=== PATIENT | female | born 1975 | race Caucasian/White ===

== ENCOUNTER 2021-04-19 12:42 | Inpatient (IN) | payer OTHER ==
[~2021-04-19] VITALS: Ht 172.7 cm; Wt 117.9 kg
[2021-04-19] MEDS ORDERED: CETI10TA16 PO (13:12)
[2021-04-19] MEDS ORDERED: MONT10TA49 PO (13:12)
[2021-04-19] MEDS ORDERED: ATEN50TA PO (13:12)
[2021-04-19] MEDS ORDERED: GLUC-11 PO (13:12)
[2021-04-19] MEDS ORDERED: FLUT9.9S NS (13:12)
[2021-04-19] MEDS ORDERED: METF10007 PO (13:12)
[2021-04-19] MEDS ORDERED: CHOL500021 PO (13:12)
[2021-04-19] MEDS ORDERED: MAGN500C10 PO (13:12)
[2021-04-19] MEDS ORDERED: INDO25CA21 PO (13:12)
[2021-04-19] MEDS ORDERED: POTA10TA12 PO (13:12)
[2021-04-19] MEDS: fentaNYL PF VIAL 100 MCG/2 ML VIAL IVP PRN ×2 (13:55→20:50)
[2021-04-19] MEDS: IV NORMAL SALINE 1000ML BAG 1,000 ML IV SCH ×2 (13:57→23:40)
[2021-04-19 14:06] LABS: BASO % 0 % (0-3); EOS % 0 % (0-3); HEMATOCRIT 43.4 % (36.0-47.0); HEMOGLOBIN 14.2 g/dL (12.0-15.5); LYMPH # 0.2 x10^3/uL (1.0-4.8); LYMPH % 4 % (24-48); MEAN CORPUSCULAR HEMOGLOBIN 29 pg (25-35); MEAN CORPUSCULAR HGB CONC 33 g/dL (31-37); MEAN CORPUSCULAR VOLUME 89 fL (79-100); MONO # 0.4 x10^3/uL (0.0-1.1); MONO % 7 % (0-9); NEUT # 6.1 x10^3/uL (1.8-7.7); NEUT % 89 % (31-73); PLATELET COUNT 186 x10^3/uL (140-400); RED BLOOD COUNT 4.91 x10^6/uL (3.50-5.40); RED CELL DISTRIBUTION WIDTH 14.5 % (11.5-14.5); WHITE BLOOD COUNT 6.8 x10^3/uL (4.0-11.0)
[2021-04-19 14:18] LABS: ALBUMIN 3.3 g/dL (3.4-5.0); ALBUMIN/GLOBULIN RATIO 1.2 (1.0-1.7); CALCIUM 8.1 mg/dL (8.5-10.1); CREATININE 0.7 mg/dL (0.6-1.0); GFR 90.9; POTASSIUM 4.5 mmol/L (3.5-5.1); TOTAL BILIRUBIN 0.7 mg/dL (0.2-1.0); TOTAL PROTEIN 6.1 g/dL (6.4-8.2)
[2021-04-19 14:48] LABS: % BANDS 19 % (0-9); % LYMPHS 5 % (24-48); % METAS 1 % (0-0); % MONOS 6 % (0-10); % MYELOS 1 % (0-0); % SEGS 68 % (35-66); PLT ESTIMATE ADEQUATE (ADEQUATE)
[2021-04-19 15:00] VITALS: BP 93/46
[2021-04-19 19:00] VITALS: BP 94/51
--- NOTE | 2021-04-19 19:24 | PDOC2 ---
CONSULT Date of Consult Date of Consult DATE: 04/19/21 TIME: 19:21 Reason for Consult Reason for Consult: ileus Referring Physician Referring Physician: Dr. Cline Identification/Chief Complaint Chief Complaint N/V Source Source: Chart review, Patient History of Present Illness Reason for Visit: 45 yo F with c/o N/V and abd pain. Does feels somewhat better since admission. She does have chronic pain. Past Medical History Endocrine: Diabetes Past Surgical History Past Surgical History: Other (nephrectomy) Family History Family History: No Significant Social History No Current Medications Current Medications Current Medications Sodium Chloride 1,000 ml @ 100 mls/hr Q10H IV Last administered on 04/19/21at 13:57; Start 04/19/21 at 13:00 Fentanyl Citrate (Fentanyl 2ml Vial) 50 mcg PRN Q3HRS PRN IVP PAIN Last administered on 04/19/21at 13:55; Start 04/19/21 at 13:00 Ondansetron HCl (Zofran) 4 mg PRN Q4HRS PRN IVP NAUSEA/VOMITING; Start 04/19/21 at 13:00 Active Scripts Active Reported Cidaflex Tablet (Glucosamine Hcl/Chondr Eller A Na) 1 Each Tablet 1 Tab PO DAILY 30 Days Flonase Allergy Relief (Fluticasone Propionate) 9.9 Ml [place].susp 2 Sprays NS PRN DAILY PRN Potassium Chloride (Potassium Chloride) 10 Meq Tab.sr.24h 10 Meq PO DAILY D3-50 (Cholecalciferol (Vitamin D3)) 50,000 Unit Capsule 2,000 Unit PO QMWF Magnesium (Magnesium Oxide) 500 Mg Capsule 500 Mg PO DAILY Cetirizine Hcl 10 Mg Tablet 1 Tab PO DAILY Indomethacin 25 Mg Capsule 25 Mg PO TID Singulair Tablet (Montelukast Sodium) 10 Mg Tablet 10 Mg PO DAILY Atenolol 50 Mg Tablet 1 Tab PO DAILY Metformin Hcl 1,000 Mg Tablet 1,000 Mg PO BIDWMEALS Allergies Allergies: Coded Allergies: Penicillins (Verified Allergy, Unknown, 04/19/21) ROS Gastrointestinal: Yes Nausea, Yes Vomiting, Yes Abdominal Pain Physical Exam General: Alert, Oriented X3, Cooperative, mild distress HEENT: Atraumatic Lungs: Normal air movement Abdomen: Soft, Other (obese, mild TTP epigastric) Extremities: No clubbing, No cyanosis Skin: No rashes, No breakdown Neuro: Normal speech, Sensation intact Psych/Mental Status: Mental status NL, Mood NL Vitals VITALS Vital Signs Date Time Temp Pulse Resp B/P (MAP) Pulse Ox O2 Delivery O2 Flow Rate FiO2 04/19/21 15:00 98.0 74 18 93/46 (62) 96 Room Air 98.0 Labs Labs Laboratory Tests Test 04/19/21 13:55 White Blood Count 6.8 x10^3/uL (4.0-11.0) Red Blood Count 4.91 x10^6/uL (3.50-5.40) Hemoglobin 14.2 g/dL (12.0-15.5) Hematocrit 43.4 % (36.0-47.0) Mean Corpuscular Volume 89 fL (79-100) Mean Corpuscular Hemoglobin 29 pg (25-35) Mean Corpuscular Hemoglobin Concent 33 g/dL (31-37) Red Cell Distribution Width 14.5 % (11.5-14.5) Platelet Count 186 x10^3/uL (140-400) Neutrophils (%) (Auto) 89 % (31-73) Lymphocytes (%) (Auto) 4 % (24-48) Monocytes (%) (Auto) 7 % (0-9) Eosinophils (%) (Auto) 0 % (0-3) Basophils (%) (Auto) 0 % (0-3) Neutrophils # (Auto) 6.1 x10^3/uL (1.8-7.7) Lymphocytes # (Auto) 0.2 x10^3/uL (1.0-4.8) Monocytes # (Auto) 0.4 x10^3/uL (0.0-1.1) Eosinophils # (Auto) 0.0 x10^3/uL (0.0-0.7) Basophils # (Auto) 0.0 x10^3/uL (0.0-0.2) Segmented Neutrophils % 68 % (35-66) Band Neutrophils % 19 % (0-9) Lymphocytes % 5 % (24-48) Monocytes % 6 % (0-10) Metamyelocytes % 1 % (0-0) Myelocytes % 1 % (0-0) Platelet Estimate Adequate (ADEQUATE) Sodium Level 141 mmol/L (136-145) Potassium Level 4.5 mmol/L (3.5-5.1) Chloride Level 105 mmol/L (98-107) Carbon Dioxide Level 26 mmol/L (21-32) Anion Gap 10 (6-14) Blood Urea Nitrogen 19 mg/dL (7-20) Creatinine 0.7 mg/dL (0.6-1.0) Estimated GFR (Cockcroft-Gault) 90.9 BUN/Creatinine Ratio 27 (6-20) Glucose Level 298 mg/dL (70-99) Calcium Level 8.1 mg/dL (8.5-10.1) Total Bilirubin 0.7 mg/dL (0.2-1.0) Aspartate Amino Transf (AST/SGOT) 15 U/L (15-37) Alanine Aminotransferase (ALT/SGPT) 34 U/L (14-59) Alkaline Phosphatase 48 U/L (46-116) Total Protein 6.1 g/dL (6.4-8.2) Albumin 3.3 g/dL (3.4-5.0) Albumin/Globulin Ratio 1.2 (1.0-1.7) Laboratory Tests Test 04/19/21 13:55 White Blood Count 6.8 x10^3/uL (4.0-11.0) Red Blood Count 4.91 x10^6/uL (3.50-5.40) Hemoglobin 14.2 g/dL (12.0-15.5) Hematocrit 43.4 % (36.0-47.0) Mean Corpuscular Volume 89 fL (79-100) Mean Corpuscular Hemoglobin 29 pg (25-35) Mean Corpuscular Hemoglobin Concent 33 g/dL (31-37) Red Cell Distribution Width 14.5 % (11.5-14.5) Platelet Count 186 x10^3/uL (140-400) Neutrophils (%) (Auto) 89 % (31-73) Lymphocytes (%) (Auto) 4 % (24-48) Monocytes (%) (Auto) 7 % (0-9) Eosinophils (%) (Auto) 0 % (0-3) Basophils (%) (Auto) 0 % (0-3) Neutrophils # (Auto) 6.1 x10^3/uL (1.8-7.7) Lymphocytes # (Auto) 0.2 x10^3/uL (1.0-4.8) Monocytes # (Auto) 0.4 x10^3/uL (0.0-1.1) Eosinophils # (Auto) 0.0 x10^3/uL (0.0-0.7) Basophils # (Auto) 0.0 x10^3/uL (0.0-0.2) Segmented Neutrophils % 68 % (35-66) Band Neutrophils % 19 % (0-9) Lymphocytes % 5 % (24-48) Monocytes % 6 % (0-10) Metamyelocytes % 1 % (0-0) Myelocytes % 1 % (0-0) Platelet Estimate Adequate (ADEQUATE) Sodium Level 141 mmol/L (136-145) Potassium Level 4.5 mmol/L (3.5-5.1) Chloride Level 105 mmol/L (98-107) Carbon Dioxide Level 26 mmol/L (21-32) Anion Gap 10 (6-14) Blood Urea Nitrogen 19 mg/dL (7-20) Creatinine 0.7 mg/dL (0.6-1.0) Estimated GFR (Cockcroft-Gault) 90.9 BUN/Creatinine Ratio 27 (6-20) Glucose Level 298 mg/dL (70-99) Calcium Level 8.1 mg/dL (8.5-10.1) Total Bilirubin 0.7 mg/dL (0.2-1.0) Aspartate Amino Transf (AST/SGOT) 15 U/L (15-37) Alanine Aminotransferase (ALT/SGPT) 34 U/L (14-59) Alkaline Phosphatase 48 U/L (46-116) Total Protein 6.1 g/dL (6.4-8.2) Albumin 3.3 g/dL (3.4-5.0) Albumin/Globulin Ratio 1.2 (1.0-1.7) Images Images CT at [facility] demonstrates dilated SB loops Assessment/Plan Assessment/Plan ileus agree with supportive care, favor gastroenteritis, which should resolved with conservative measurements. Thanks for consult! RAYMUNDO MILLER MD Apr 19, 2021 19:24
[2021-04-19 23:00] VITALS: BP 103/55
[2021-04-20 03:00] VITALS: BP 105/67
[2021-04-20] MEDS: fentaNYL PF VIAL 100 MCG/2 ML VIAL IVP PRN ×5 (04:42→20:46)
[2021-04-20 07:08] VITALS: BP 124/76
--- NOTE | 2021-04-20 08:00 | RAD ---
INDICATION: Reason: ileus / Spl. Instructions: / History: COMPARISON: One day prior IMPRESSION: Abdomen: 3 views obtained. Degenerative changes the spine and hips. The majority of the bowel loops a re not opacified with the gas therefore not well evaluated on plain film. There is scattered nonspeci fic air in the bowel loops. Electronically signed by: Len Matos MD (04/20/2021 7:57 AM) [id number]
--- NOTE | 2021-04-20 08:39 | HP ---
ADMIT DATE: 04/20/2021 HISTORY OF PRESENT ILLNESS: The patient is a 45-year-old female patient who presented to the Emergency Room with nausea, vomiting and abdominal pain. She apparently woke up at around 3:00 a.m., feeling nauseated. She has had several episodes of vomiting. She has diffuse abdominal pain and low back pain that she describes as stabbing. She apparently has chronic low back pain at baseline. The patient mentioned that she had also mild discomfort, but thinks that this is because of her dry heaving. No history of cardiac or lung problems. Denied any chills, rigors or fever. She was extensively investigated in the Emergency Room and has had lab work. Her white cell count was normal and her chemistry was mostly unremarkable. Urinalysis was also unremarkable and toxic screen was essentially negative. She has had imaging studies including a chest x-ray which showed no acute osseous abnormality and a CT scan of the abdomen and pelvis which basically showed mildly dilated air and fluid-filled jejunal loops are seen within the left abdomen, which could represent an ileus versus mild partial small-bowel obstruction, probable cysts are seen involving the right ovary, these measures 2 and 3.8 cm in size and therefore, the patient was transferred to [facility], was kept n.p.o., started on IV fluid, IV pain medication and antiemetic and consulted the surgical team. PAST MEDICAL HISTORY: Significant for type 2 diabetes mellitus, hypertension, hyperlipidemia. PAST SURGICAL HISTORY: Significant for a left oophorectomy. ALLERGIES: She has according to her, no known drug allergies. MEDICATIONS: She is currently on the following medications: She is on clonidine 0.1 mg twice a day, atenolol 25 mg twice a day, ibuprofen 800 mg every 8 hours, naproxen 220 mg every 8 hours, potassium chloride 10 mEq once a day, metformin 500 mg p.o. twice a day. FAMILY HISTORY: She has two sisters and one brother, older. Her older sister has scleroderma. Her biological father is and she does not know him very well. Her mother is still alive, 74 years old and she has diabetes mellitus. SOCIAL HISTORY: She is , has 1 son. Quit smoking about 10 years ago. Drinks alcohol occasionally. She does not use any drugs. She works as an predatory animal exterminator. REVIEW OF SYSTEMS: As per history of present illness. PHYSICAL EXAMINATION: GENERAL: On arrival to the Emergency Room, she looked well and was clearly in no apparent respiratory distress. No pallor, jaundice, cyanosis, or thyromegaly. No jugular venous distention. No limb edema. VITAL SIGNS: Heart rate was 102, blood pressure is 134/81, temperature was 98.7, respiratory rate was 16 and oxygen saturation was 97% on room air. HEAD, EYES, EARS, NOSE AND THROAT: She is normocephalic, atraumatic. NECK: Supple. HEART: Normal first and second heart sounds, no gallop, murmur. CHEST: Clear to auscultation without crepitation or rhonchi. ABDOMEN: Distended, mild tenderness, mostly in the right upper quadrant. There is no guarding or rigidity. No organomegaly. All hernial orifice intact. Bowel sounds sluggish. NEUROLOGIC: She was grossly intact. LABORATORY DATA: While in the Emergency Room, she has had lab work, which basically showed a white cell count of 8400, hemoglobin 15, hematocrit 47, MCV 89 and platelet count 212,000 with normal manual differential. Her chemistry showed a serum sodium 139, potassium 3.8, chloride 103, bicarbonate 22, anion gap of 14, BUN 18, creatinine 0.7. Estimated GFR was 91 mL per minute. His glucose was 196, calcium was 8.3. Her bilirubin, AST, ALT, alkaline phosphatase were normal. Her total protein is 6.9, albumin 3.5. Urinalysis showed the urine was yellow, cloudy with a pH of 5, specific gravity 1.025. The urine was negative for protein. There was large amount of glucose, trace of ketones and trace of blood, negative for nitrite and bilirubin as well as urobilinogen dipstick, it was negative for leukocyte esterase, rare RBCs, 1-4 WBCs and no bacteria. Her urine toxic screen was essentially negative. ASSESSMENT AND PLAN: Because of the finding on the CT scan of the abdomen, dilated fluid filled jejunal loops are seen within the left abdomen obese, these finding could reflect an ileus versus mild partial bowel obstruction, the patient was kept n.p.o., started on IV fluid and was transferred to [facility]. We will continue with IV fentanyl and antiemetic. We did consult the surgical team for further evaluation and treatment. MORIS/ALFONZO DR: Devon TID: [id number]
[2021-04-20] MEDS: IV NORMAL SALINE 1000ML BAG 1,000 ML IV SCH ×2 (09:29→20:42)
[2021-04-20 11:11] VITALS: BP 124/89
--- NOTE | 2021-04-20 12:08 | PDOC ---
SURGICAL PROGRESS NOTE DATE: 04/20/21 TIME: 12:07 Subjective Pt reports feeling a little better, no N/V, no flatus, c/o stabbing LLQ and LUQ pain Vital Signs Vital Signs Date Time Temp Pulse Resp B/P (MAP) Pulse Ox O2 Delivery O2 Flow Rate FiO2 04/20/21 11:53 Room Air 04/20/21 11:11 98.5 85 18 124/89 (101) 96 98.5 General: Alert, Oriented X3, Cooperative, No acute distress Abdomen: Soft, No tenderness, Other (obese) Labs Laboratory Tests Test 04/19/21 13:55 04/19/21 20:36 04/20/21 06:59 04/20/21 11:19 White Blood Count 6.8 x10^3/uL (4.0-11.0) Red Blood Count 4.91 x10^6/uL (3.50-5.40) Hemoglobin 14.2 g/dL (12.0-15.5) Hematocrit 43.4 % (36.0-47.0) Mean Corpuscular Volume 89 fL (79-100) Mean Corpuscular Hemoglobin 29 pg (25-35) Mean Corpuscular Hemoglobin Concent 33 g/dL (31-37) Red Cell Distribution Width 14.5 % (11.5-14.5) Platelet Count 186 x10^3/uL (140-400) Neutrophils (%) (Auto) 89 % (31-73) Lymphocytes (%) (Auto) 4 % (24-48) Monocytes (%) (Auto) 7 % (0-9) Eosinophils (%) (Auto) 0 % (0-3) Basophils (%) (Auto) 0 % (0-3) Neutrophils # (Auto) 6.1 x10^3/uL (1.8-7.7) Lymphocytes # (Auto) 0.2 x10^3/uL (1.0-4.8) Monocytes # (Auto) 0.4 x10^3/uL (0.0-1.1) Eosinophils # (Auto) 0.0 x10^3/uL (0.0-0.7) Basophils # (Auto) 0.0 x10^3/uL (0.0-0.2) Segmented Neutrophils % 68 % (35-66) Band Neutrophils % 19 % (0-9) Lymphocytes % 5 % (24-48) Monocytes % 6 % (0-10) Metamyelocytes % 1 % (0-0) Myelocytes % 1 % (0-0) Platelet Estimate Adequate (ADEQUATE) Sodium Level 141 mmol/L (136-145) Potassium Level 4.5 mmol/L (3.5-5.1) Chloride Level 105 mmol/L (98-107) Carbon Dioxide Level 26 mmol/L (21-32) Anion Gap 10 (6-14) Blood Urea Nitrogen 19 mg/dL (7-20) Creatinine 0.7 mg/dL (0.6-1.0) Estimated GFR (Cockcroft-Gault) 90.9 BUN/Creatinine Ratio 27 (6-20) Glucose Level 298 mg/dL (70-99) Calcium Level 8.1 mg/dL (8.5-10.1) Total Bilirubin 0.7 mg/dL (0.2-1.0) Aspartate Amino Transf (AST/SGOT) 15 U/L (15-37) Alanine Aminotransferase (ALT/SGPT) 34 U/L (14-59) Alkaline Phosphatase 48 U/L (46-116) Total Protein 6.1 g/dL (6.4-8.2) Albumin 3.3 g/dL (3.4-5.0) Albumin/Globulin Ratio 1.2 (1.0-1.7) Glucose (Fingerstick) 194 mg/dL (70-99) 174 mg/dL (70-99) 168 mg/dL (70-99) Laboratory Tests Test 04/19/21 13:55 04/19/21 20:36 04/20/21 06:59 04/20/21 11:19 White Blood Count 6.8 x10^3/uL (4.0-11.0) Red Blood Count 4.91 x10^6/uL (3.50-5.40) Hemoglobin 14.2 g/dL (12.0-15.5) Hematocrit 43.4 % (36.0-47.0) Mean Corpuscular Volume 89 fL (79-100) Mean Corpuscular Hemoglobin 29 pg (25-35) Mean Corpuscular Hemoglobin Concent 33 g/dL (31-37) Red Cell Distribution Width 14.5 % (11.5-14.5) Platelet Count 186 x10^3/uL (140-400) Neutrophils (%) (Auto) 89 % (31-73) Lymphocytes (%) (Auto) 4 % (24-48) Monocytes (%) (Auto) 7 % (0-9) Eosinophils (%) (Auto) 0 % (0-3) Basophils (%) (Auto) 0 % (0-3) Neutrophils # (Auto) 6.1 x10^3/uL (1.8-7.7) Lymphocytes # (Auto) 0.2 x10^3/uL (1.0-4.8) Monocytes # (Auto) 0.4 x10^3/uL (0.0-1.1) Eosinophils # (Auto) 0.0 x10^3/uL (0.0-0.7) Basophils # (Auto) 0.0 x10^3/uL (0.0-0.2) Segmented Neutrophils % 68 % (35-66) Band Neutrophils % 19 % (0-9) Lymphocytes % 5 % (24-48) Monocytes % 6 % (0-10) Metamyelocytes % 1 % (0-0) Myelocytes % 1 % (0-0) Platelet Estimate Adequate (ADEQUATE) Sodium Level 141 mmol/L (136-145) Potassium Level 4.5 mmol/L (3.5-5.1) Chloride Level 105 mmol/L (98-107) Carbon Dioxide Level 26 mmol/L (21-32) Anion Gap 10 (6-14) Blood Urea Nitrogen 19 mg/dL (7-20) Creatinine 0.7 mg/dL (0.6-1.0) Estimated GFR (Cockcroft-Gault) 90.9 BUN/Creatinine Ratio 27 (6-20) Glucose Level 298 mg/dL (70-99) Calcium Level 8.1 mg/dL (8.5-10.1) Total Bilirubin 0.7 mg/dL (0.2-1.0) Aspartate Amino Transf (AST/SGOT) 15 U/L (15-37) Alanine Aminotransferase (ALT/SGPT) 34 U/L (14-59) Alkaline Phosphatase 48 U/L (46-116) Total Protein 6.1 g/dL (6.4-8.2) Albumin 3.3 g/dL (3.4-5.0) Albumin/Globulin Ratio 1.2 (1.0-1.7) Glucose (Fingerstick) 194 mg/dL (70-99) 174 mg/dL (70-99) 168 mg/dL (70-99) I have reviewed the following KUB wnl Problem List abd pain no obvious surgical intervention and favor gastroenteritis will ask GI to comment. Justicifation of Admission Dx: Justifications for Admission: Justification of Admission Dx: N/A RAYMUNDO MILLER MD Apr 20, 2021 12:08
--- NOTE | 2021-04-20 12:25 | NUR ---
Dr. Brewer consult called, Dr. Trujillo assistant store manager operations today.
[2021-04-20 14:09] VITALS: BP 127/78
[2021-04-20 19:15] VITALS: BP 138/63
--- NOTE | 2021-04-20 19:58 | PN ---
DATE: 04/20/2021 SUBJECTIVE: The patient is resting slightly propped up in bed in no apparent distress. Has some discomfort in the right upper quadrant and also pain that she describes as stabbing, goes through and through to the back. Denied any nausea, vomiting. She has not passed any gas and has no bowel movement. PHYSICAL EXAMINATION: GENERAL: When I examined her this morning, she looked well and was clearly in no apparent respiratory distress. No pallor, jaundice, cyanosis, thyromegaly. No jugular venous distention. No lower limb edema. VITAL SIGNS: Heart rate was 90, blood pressure is 124/70, temperature was 99, respiratory rate was 18 and oxygen saturation was 96% on room air. HEAD, EYES, EARS, NOSE AND THROAT: Normocephalic, atraumatic. NECK: Supple. HEART: Showed normal first and second heart sounds, no gallop, or murmur. CHEST: Clear to auscultation, no crepitation or rhonchi. ABDOMEN: Distended, mostly soft. Tenderness mostly in the right upper quadrant. There is no guarding or rigidity. No organomegaly. All hernial orifice intact. Bowel sounds are inaudible. NEUROLOGIC: She seems to be all intact. Her intake and output are incompletely recorded. LABORATORY DATA: Her lab work this morning showed a white cell count 6800; hemoglobin 14; hematocrit 44; MCV 89 and platelet count of 186,000. Her serum sodium is 141, potassium 4.5, chloride 105, bicarbonate 26, anion gap of 10, BUN 19, creatinine 0.7. Estimated GFR was 90 mL per minute. Her glucose was 298, calcium was 8.1. Total bilirubin, AST, ALT, alkaline phosphatase were normal. Total protein 6.1, albumin 3.3. ASSESSMENT: Small-bowel obstruction. Her abdomen x-ray showed the majority of the bowel loops that are not opacified. ____. There is scattered foci of air in the bowel loops. PLAN: To keep the patient n.p.o. Continue with IV fluid. Continue pain management, antiemetic. Continue to monitor her blood sugar. MORIS/ALFONZO/SHIRLEY DR: Devon TID: [id number]
--- NOTE | 2021-04-20 20:00 | NUR ---
IV access infiltrated ,patient refused IV access re-started . Addendum: 04/21/21 at 0042 by JIMENEZ NANCE RN correction on above progress note entered by this RN ,wrong patient.
[2021-04-20 23:15] VITALS: BP 125/74
[2021-04-21] MEDS: ONDANSETRON PF 4 MG/2 ML VIAL. IVP PRN ×2 (01:04→22:24)
[2021-04-21] MEDS: fentaNYL PF VIAL 100 MCG/2 ML VIAL IVP PRN ×5 (01:05→22:24)
[2021-04-21 03:16] VITALS: BP 126/78
[2021-04-21] MEDS: IV NORMAL SALINE 1000ML BAG 1,000 ML IV SCH ×3 (06:25→16:38)
[2021-04-21] MEDS: ACETAMINOPHEN 325 MG TABLET. PO PRN ×3 (06:36→20:58)
[2021-04-21 07:12] VITALS: BP 154/84
[2021-04-21 09:25] LABS: BASO % 0 % (0-3); EOS % 0 % (0-3); LYMPH # 0.5 x10^3/uL (1.0-4.8); LYMPH % 10 % (24-48); MEAN CORPUSCULAR HEMOGLOBIN 29 pg (25-35); MEAN CORPUSCULAR HGB CONC 33 g/dL (31-37); MEAN CORPUSCULAR VOLUME 88 fL (79-100); MONO # 0.6 x10^3/uL (0.0-1.1); MONO % 11 % (0-9); NEUT # 4.2 x10^3/uL (1.8-7.7); NEUT % 79 % (31-73); PLATELET COUNT 166 x10^3/uL (140-400); RED BLOOD COUNT 4.44 x10^6/uL (3.50-5.40); RED CELL DISTRIBUTION WIDTH 14.2 % (11.5-14.5); WHITE BLOOD COUNT 5.3 x10^3/uL (4.0-11.0)
[2021-04-21 09:44] LABS: CALCIUM 8.1 mg/dL (8.5-10.1); CREATININE 0.5 mg/dL (0.6-1.0); POTASSIUM 3.3 mmol/L (3.5-5.1); TOTAL BILIRUBIN 0.4 mg/dL (0.2-1.0)
[2021-04-21 10:31] VITALS: BP 147/88
--- NOTE | 2021-04-21 14:05 | PDOC ---
SURGICAL PROGRESS NOTE DATE: 04/21/21 TIME: 14:04 Subjective Pt feels overall improved today. Longstanding back pain. C/o BRYANT. Radha clears, no N/V Vital Signs Vital Signs Date Time Temp Pulse Resp B/P (MAP) Pulse Ox O2 Delivery O2 Flow Rate FiO2 04/21/21 11:46 Room Air 04/21/21 10:31 98.1 77 18 147/88 (107) 97 98.1 I&O Intake and Output 04/21/21 07:00 Intake Total 480 ml Balance 480 ml Intake Oral 480 ml # Voids 2 General: Alert, Oriented X3, Cooperative, No acute distress Abdomen: Soft, No tenderness Labs Laboratory Tests Test 04/19/21 20:36 04/20/21 06:59 04/20/21 11:19 04/20/21 16:06 Glucose (Fingerstick) 194 mg/dL (70-99) 174 mg/dL (70-99) 168 mg/dL (70-99) 225 mg/dL (70-99) Test 04/20/21 20:41 04/21/21 06:51 04/21/21 08:25 04/21/21 11:10 Glucose (Fingerstick) 222 mg/dL (70-99) 184 mg/dL (70-99) 246 mg/dL (70-99) White Blood Count 5.3 x10^3/uL (4.0-11.0) Red Blood Count 4.44 x10^6/uL (3.50-5.40) Hemoglobin 13.0 g/dL (12.0-15.5) Hematocrit 39.0 % (36.0-47.0) Mean Corpuscular Volume 88 fL (79-100) Mean Corpuscular Hemoglobin 29 pg (25-35) Mean Corpuscular Hemoglobin Concent 33 g/dL (31-37) Red Cell Distribution Width 14.2 % (11.5-14.5) Platelet Count 166 x10^3/uL (140-400) Neutrophils (%) (Auto) 79 % (31-73) Lymphocytes (%) (Auto) 10 % (24-48) Monocytes (%) (Auto) 11 % (0-9) Eosinophils (%) (Auto) 0 % (0-3) Basophils (%) (Auto) 0 % (0-3) Neutrophils # (Auto) 4.2 x10^3/uL (1.8-7.7) Lymphocytes # (Auto) 0.5 x10^3/uL (1.0-4.8) Monocytes # (Auto) 0.6 x10^3/uL (0.0-1.1) Eosinophils # (Auto) 0.0 x10^3/uL (0.0-0.7) Basophils # (Auto) 0.0 x10^3/uL (0.0-0.2) Sodium Level 143 mmol/L (136-145) Potassium Level 3.3 mmol/L (3.5-5.1) Chloride Level 106 mmol/L (98-107) Carbon Dioxide Level 24 mmol/L (21-32) Anion Gap 13 (6-14) Blood Urea Nitrogen 7 mg/dL (7-20) Creatinine 0.5 mg/dL (0.6-1.0) Estimated GFR (Cockcroft-Gault) 134.0 BUN/Creatinine Ratio 14 (6-20) Glucose Level 184 mg/dL (70-99) Calcium Level 8.1 mg/dL (8.5-10.1) Total Bilirubin 0.4 mg/dL (0.2-1.0) Aspartate Amino Transf (AST/SGOT) 27 U/L (15-37) Alanine Aminotransferase (ALT/SGPT) 40 U/L (14-59) Alkaline Phosphatase 46 U/L (46-116) Total Protein 6.0 g/dL (6.4-8.2) Albumin 3.0 g/dL (3.4-5.0) Albumin/Globulin Ratio 1.0 (1.0-1.7) Lipase 105 U/L (73-393) Laboratory Tests Test 04/20/21 16:06 04/20/21 20:41 04/21/21 06:51 04/21/21 08:25 Glucose (Fingerstick) 225 mg/dL (70-99) 222 mg/dL (70-99) 184 mg/dL (70-99) White Blood Count 5.3 x10^3/uL (4.0-11.0) Red Blood Count 4.44 x10^6/uL (3.50-5.40) Hemoglobin 13.0 g/dL (12.0-15.5) Hematocrit 39.0 % (36.0-47.0) Mean Corpuscular Volume 88 fL (79-100) Mean Corpuscular Hemoglobin 29 pg (25-35) Mean Corpuscular Hemoglobin Concent 33 g/dL (31-37) Red Cell Distribution Width 14.2 % (11.5-14.5) Platelet Count 166 x10^3/uL (140-400) Neutrophils (%) (Auto) 79 % (31-73) Lymphocytes (%) (Auto) 10 % (24-48) Monocytes (%) (Auto) 11 % (0-9) Eosinophils (%) (Auto) 0 % (0-3) Basophils (%) (Auto) 0 % (0-3) Neutrophils # (Auto) 4.2 x10^3/uL (1.8-7.7) Lymphocytes # (Auto) 0.5 x10^3/uL (1.0-4.8) Monocytes # (Auto) 0.6 x10^3/uL (0.0-1.1) Eosinophils # (Auto) 0.0 x10^3/uL (0.0-0.7) Basophils # (Auto) 0.0 x10^3/uL (0.0-0.2) Sodium Level 143 mmol/L (136-145) Potassium Level 3.3 mmol/L (3.5-5.1) Chloride Level 106 mmol/L (98-107) Carbon Dioxide Level 24 mmol/L (21-32) Anion Gap 13 (6-14) Blood Urea Nitrogen 7 mg/dL (7-20) Creatinine 0.5 mg/dL (0.6-1.0) Estimated GFR (Cockcroft-Gault) 134.0 BUN/Creatinine Ratio 14 (6-20) Glucose Level 184 mg/dL (70-99) Calcium Level 8.1 mg/dL (8.5-10.1) Total Bilirubin 0.4 mg/dL (0.2-1.0) Aspartate Amino Transf (AST/SGOT) 27 U/L (15-37) Alanine Aminotransferase (ALT/SGPT) 40 U/L (14-59) Alkaline Phosphatase 46 U/L (46-116) Total Protein 6.0 g/dL (6.4-8.2) Albumin 3.0 g/dL (3.4-5.0) Albumin/Globulin Ratio 1.0 (1.0-1.7) Lipase 105 U/L (73-393) Test 04/21/21 11:10 Glucose (Fingerstick) 246 mg/dL (70-99) Assessment/Plan ileus agree with GI consultation no surgical plans currently pt may benefit from neurosurgery consultation regarding back pain Justicifation of Admission Dx: Justifications for Admission: Justification of Admission Dx: N/A RAYMUNDO MILLER MD Apr 21, 2021 14:05
--- NOTE | 2021-04-21 14:31 | PDOC2 ---
CONSULT Date of Consult Date of Consult DATE: 04/21/21 TIME: 14:26 Reason for Consult Reason for Consult: Abdominal pain, ileus, change in bowel pattern History of Present Illness Reason for Visit: This is a 45-year-old female who describes several months ago the onset of some intermittent nausea but without vomiting. She also had some intermittent abdominal pain, more diffuse pain that moves around in her abdomen sometimes sharp. However she was managing this at home until the last few days when her symptoms change. She developed more nausea and some dry heaves but not vomiting. She had no fever but noticed the development of diarrhea. Prior to that she just had normal soft stools in the past. She is a diabetic and has been on Metformin with blood sugars she says in the 170 range but here they have been over 200. She denies any hematemesis melena or hematochezia. No other changes in medications. No one else ill at home. She presented to [facility] and a CT showed an ileus picture and she was transferred here for further evaluation. She is already seen the surgical service but she does not have obstruction and so no intervention is recommended Past Medical History Musculoskeletal: Osteoarthritis Endocrine: Diabetes Past Surgical History Past Surgical History: Other (nephrectomy) Family History Family History: No Significant Social History No Current Medications Current Medications Current Medications Sodium Chloride 1,000 ml @ 100 mls/hr Q10H IV Last administered on 04/21/21at 06:25; Start 04/19/21 at 13:00 Fentanyl Citrate (Fentanyl 2ml Vial) 50 mcg PRN Q3HRS PRN IVP PAIN Last administered on 04/21/21at 11:46; Start 04/19/21 at 13:00 Ondansetron HCl (Zofran) 4 mg PRN Q4HRS PRN IVP NAUSEA/VOMITING Last administered on 04/21/21at 01:04; Start 04/19/21 at 13:00 Acetaminophen (Tylenol) 650 mg PRN Q4HRS PRN PO MILD PAIN / TEMP > 100.3'F Last administered on 04/21/21at 06:36; Start 04/21/21 at 06:30 Active Scripts Active Reported Cidaflex Tablet (Glucosamine Hcl/Chondr Eller A Na) 1 Each Tablet 1 Tab PO DAILY 30 Days Flonase Allergy Relief (Fluticasone Propionate) 9.9 Ml [place].susp 2 Sprays NS PRN DAILY PRN Potassium Chloride (Potassium Chloride) 10 Meq Tab.sr.24h 10 Meq PO DAILY D3-50 (Cholecalciferol (Vitamin D3)) 50,000 Unit Capsule 2,000 Unit PO QMWF Magnesium (Magnesium Oxide) 500 Mg Capsule 500 Mg PO DAILY Cetirizine Hcl 10 Mg Tablet 1 Tab PO DAILY Indomethacin 25 Mg Capsule 25 Mg PO TID Singulair Tablet (Montelukast Sodium) 10 Mg Tablet 10 Mg PO DAILY Atenolol 50 Mg Tablet 1 Tab PO DAILY Metformin Hcl 1,000 Mg Tablet 1,000 Mg PO BIDWMEALS Allergies Allergies: Coded Allergies: Penicillins (Verified Allergy, Intermediate, 04/20/21) Physical Exam General: Alert, Oriented X3 HEENT: Atraumatic Lungs: Clear to auscultation Heart: Regular rate, Normal S1, Normal S2 Abdomen: Normal bowel sounds, Soft, No hepatosplenomegaly, Other (Obese, mild tenderness without point tenderness or rebound) Extremities: No clubbing Neuro: Normal speech Psych/Mental Status: Mental status NL Vitals VITALS Vital Signs Date Time Temp Pulse Resp B/P (MAP) Pulse Ox O2 Delivery O2 Flow Rate FiO2 04/21/21 11:46 Room Air 04/21/21 10:31 98.1 77 18 147/88 (107) 97 98.1 Labs Labs Laboratory Tests Test 04/19/21 20:36 04/20/21 06:59 04/20/21 11:19 04/20/21 16:06 Glucose (Fingerstick) 194 mg/dL (70-99) 174 mg/dL (70-99) 168 mg/dL (70-99) 225 mg/dL (70-99) Test 04/20/21 20:41 04/21/21 06:51 04/21/21 08:25 04/21/21 11:10 Glucose (Fingerstick) 222 mg/dL (70-99) 184 mg/dL (70-99) 246 mg/dL (70-99) White Blood Count 5.3 x10^3/uL (4.0-11.0) Red Blood Count 4.44 x10^6/uL (3.50-5.40) Hemoglobin 13.0 g/dL (12.0-15.5) Hematocrit 39.0 % (36.0-47.0) Mean Corpuscular Volume 88 fL (79-100) Mean Corpuscular Hemoglobin 29 pg (25-35) Mean Corpuscular Hemoglobin Concent 33 g/dL (31-37) Red Cell Distribution Width 14.2 % (11.5-14.5) Platelet Count 166 x10^3/uL (140-400) Neutrophils (%) (Auto) 79 % (31-73) Lymphocytes (%) (Auto) 10 % (24-48) Monocytes (%) (Auto) 11 % (0-9) Eosinophils (%) (Auto) 0 % (0-3) Basophils (%) (Auto) 0 % (0-3) Neutrophils # (Auto) 4.2 x10^3/uL (1.8-7.7) Lymphocytes # (Auto) 0.5 x10^3/uL (1.0-4.8) Monocytes # (Auto) 0.6 x10^3/uL (0.0-1.1) Eosinophils # (Auto) 0.0 x10^3/uL (0.0-0.7) Basophils # (Auto) 0.0 x10^3/uL (0.0-0.2) Sodium Level 143 mmol/L (136-145) Potassium Level 3.3 mmol/L (3.5-5.1) Chloride Level 106 mmol/L (98-107) Carbon Dioxide Level 24 mmol/L (21-32) Anion Gap 13 (6-14) Blood Urea Nitrogen 7 mg/dL (7-20) Creatinine 0.5 mg/dL (0.6-1.0) Estimated GFR (Cockcroft-Gault) 134.0 BUN/Creatinine Ratio 14 (6-20) Glucose Level 184 mg/dL (70-99) Calcium Level 8.1 mg/dL (8.5-10.1) Total Bilirubin 0.4 mg/dL (0.2-1.0) Aspartate Amino Transf (AST/SGOT) 27 U/L (15-37) Alanine Aminotransferase (ALT/SGPT) 40 U/L (14-59) Alkaline Phosphatase 46 U/L (46-116) Total Protein 6.0 g/dL (6.4-8.2) Albumin 3.0 g/dL (3.4-5.0) Albumin/Globulin Ratio 1.0 (1.0-1.7) Lipase 105 U/L (73-393) Laboratory Tests Test 04/20/21 16:06 04/20/21 20:41 04/21/21 06:51 04/21/21 08:25 Glucose (Fingerstick) 225 mg/dL (70-99) 222 mg/dL (70-99) 184 mg/dL (70-99) White Blood Count 5.3 x10^3/uL (4.0-11.0) Red Blood Count 4.44 x10^6/uL (3.50-5.40) Hemoglobin 13.0 g/dL (12.0-15.5) Hematocrit 39.0 % (36.0-47.0) Mean Corpuscular Volume 88 fL (79-100) Mean Corpuscular Hemoglobin 29 pg (25-35) Mean Corpuscular Hemoglobin Concent 33 g/dL (31-37) Red Cell Distribution Width 14.2 % (11.5-14.5) Platelet Count 166 x10^3/uL (140-400) Neutrophils (%) (Auto) 79 % (31-73) Lymphocytes (%) (Auto) 10 % (24-48) Monocytes (%) (Auto) 11 % (0-9) Eosinophils (%) (Auto) 0 % (0-3) Basophils (%) (Auto) 0 % (0-3) Neutrophils # (Auto) 4.2 x10^3/uL (1.8-7.7) Lymphocytes # (Auto) 0.5 x10^3/uL (1.0-4.8) Monocytes # (Auto) 0.6 x10^3/uL (0.0-1.1) Eosinophils # (Auto) 0.0 x10^3/uL (0.0-0.7) Basophils # (Auto) 0.0 x10^3/uL (0.0-0.2) Sodium Level 143 mmol/L (136-145) Potassium Level 3.3 mmol/L (3.5-5.1) Chloride Level 106 mmol/L (98-107) Carbon Dioxide Level 24 mmol/L (21-32) Anion Gap 13 (6-14) Blood Urea Nitrogen 7 mg/dL (7-20) Creatinine 0.5 mg/dL (0.6-1.0) Estimated GFR (Cockcroft-Gault) 134.0 BUN/Creatinine Ratio 14 (6-20) Glucose Level 184 mg/dL (70-99) Calcium Level 8.1 mg/dL (8.5-10.1) Total Bilirubin 0.4 mg/dL (0.2-1.0) Aspartate Amino Transf (AST/SGOT) 27 U/L (15-37) Alanine Aminotransferase (ALT/SGPT) 40 U/L (14-59) Alkaline Phosphatase 46 U/L (46-116) Total Protein 6.0 g/dL (6.4-8.2) Albumin 3.0 g/dL (3.4-5.0) Albumin/Globulin Ratio 1.0 (1.0-1.7) Lipase 105 U/L (73-393) Test 04/21/21 11:10 Glucose (Fingerstick) 246 mg/dL (70-99) Assessment/Plan Assessment/Plan Abdominal pain with nausea in the last few days. Associated with an abnormal CT and x-rays suggesting an ileus pattern without obstruction. She is also had diarrhea. Although she had some abdominal pain and nausea in the past it was never to this severity. These new symptoms suggest a gastroenteritis or infectious process. Her diabetes has been poorly controlled and may be a contributing feature but is unlikely to represent the acute presentation symptoms. Plan: Stool enteric pathogens Continue liquid diet and advance as tolerated Based on her history would likely benefit from elective EGD and colonoscopy in the outpatient setting. Dr. Brewer will assume her GI care tomorrow HAN MACKAY MD Apr 21, 2021 14:31
[2021-04-21 14:39] VITALS: BP 136/79
[2021-04-21] MEDS ORDERED: DEXTROSE 50% 25 GM / 50ML DISP.SYRIN. IV PRN (18:00)
[2021-04-21] MEDS ORDERED: oxyCODONE/APAP 5/325 1 TAB TABLET PO PRN (18:00)
--- NOTE | 2021-04-21 18:42 | PN ---
DATE: 04/21/2021 SUBJECTIVE: The patient is resting, slightly propped up in bed, in no apparent respiratory distress. She continued to complain of headache and also abdominal pain that comes and goes, sharp in different areas, in the left lower quadrant, right upper quadrant, had had some nausea this morning and had also a loose bowel movement around 05:00. She is now on a clear liquid diet. PHYSICAL EXAMINATION: GENERAL: When I examined her, she looked well and was clearly in no apparent respiratory distress. No pallor, jaundice, cyanosis or thyromegaly. No jugular venous distention. No edema. VITAL SIGNS: Her heart rate was 70, blood pressure is 154/84, temperature was 98, respiratory rate was 18, and oxygen saturation was 97%. HEAD, EYES, EARS, NOSE AND THROAT: Showed normocephalic, atraumatic. NECK: Supple. HEART: Showed normal first and second heart sounds. No gallop or murmur. CHEST: Clear to auscultation, no crepitation or rhonchi. ABDOMEN: Distended, soft, nontender. There is no guarding or rigidity. No organomegaly. All hernial orifice intact. Bowel sounds are sluggish. NEUROLOGIC: She is grossly intact. Her intake and output are incompletely recorded. LABORATORY DATA: Still pending at the time of this dictation. ASSESSMENT: Small-bowel obstruction. The patient is continued to have nausea, but no vomiting, has abdominal pain that comes and goes. Her abdomen is distended. Bowel sounds are sluggish. Apparently, she was seen by the surgical team and she is now on a clear liquid diet. Continue with IV fluid. Continue with pain management and continue to monitor blood sugar and adjust insulin as needed. MORIS/MARLENA/MARIA DOLORES DR: Devon TID: [id number]
[2021-04-21 19:15] VITALS: BP 143/75
[2021-04-21] MEDS: ATENOLOL 50 MG TABLET. PO SCH (22:37)
[2021-04-21 23:00] VITALS: BP 156/88
[2021-04-22 02:50] VITALS: BP 121/79
[2021-04-22 06:57] VITALS: BP 115/76
[2021-04-22] MEDS: ATENOLOL 50 MG TABLET. PO SCH (08:32)
[2021-04-22] MEDS: INSULIN LISPRO 300 UNITS/3 ML VIAL. SQ SCH ×2 (08:37→11:35)
--- NOTE | 2021-04-22 09:59 | NUR ---
SW following. Discussed with RN, pt from home with , room air, clear liquid diet - being advanced today, COVID-19 negative. GI and Surgery following. RN advised no SW needs, anticipates possible discharge home today. SW will continue to follow.
--- NOTE | 2021-04-22 10:05 | PN ---
DATE: 04/22/2021 SUBJECTIVE: The patient is resting, slightly propped up in bed in no apparent distress. Denied any more episodes of diarrhea. She continued to complain of headache and mild abdominal pain, mostly in the right upper quadrant and left lower quadrant that she rated about 1/10 in severity. Denied any nausea or vomiting. She is tolerating her clear liquid diet. PHYSICAL EXAMINATION: GENERAL: When I examined her this morning, she looked well and was clearly in no apparent respiratory distress. No pallor, jaundice, cyanosis, or thyromegaly. No jugular venous distention. No lower limb edema. VITAL SIGNS: Her heart rate was 66, blood pressure 115/76, temperature was 97.9, respiratory rate was 18 and oxygen saturation was 97% on room air. HEAD, EYES, EARS, NOSE AND THROAT: Normocephalic, atraumatic. NECK: Supple. HEART: Normal first and second heart sounds. No gallop, murmur. CHEST: Clear to auscultation. No crepitation or rhonchi. ABDOMEN: Distended, soft, nontender. NEUROLOGIC: She was awake, alert, responding appropriately. All cranial nerves intact. She moves without difficulty. She ambulates without assistance or assistive devices. Her intake was 418, output was recorded. ASSESSMENT: Abdominal pain, with an ileus that apparently resolving. No need for any surgical intervention so far. PLAN: To advance diet as tolerated and await the Gastroenterology team evaluation and if arrangement has been made to be done as an outpatient, she can be discharged for outpatient and have outpatient EGD and colonoscopy. ACE DR: Devon TID: [id number]
[2021-04-22 10:32] VITALS: BP 133/97
[2021-04-22] MEDS: IV NORMAL SALINE 1000ML BAG 1,000 ML IV SCH (11:32)
[2021-04-22 14:29] VITALS: BP 127/61
--- NOTE | 2021-04-22 14:52 | NUR ---
Dr Brewer pagenorman re: possible d/c home.
--- NOTE | 2021-04-22 16:18 | NUR ---
Attempt x2 made to call Dr. Cline re: possible d/c, no answer, voicemail full.
--- NOTE | 2021-04-22 16:42 | NUR ---
Pt. discharged to home, verbalized understanding of discharge instructions.
--- NOTE | 2021-04-22 17:10 | PDOC ---
SURGICAL PROGRESS NOTE DATE: 04/22/21 TIME: 17:09 Subjective Pt reports feeling better, shamir diet, passing flatus and stool, pain improved Vital Signs Vital Signs Date Time Temp Pulse Resp B/P (MAP) Pulse Ox O2 Delivery O2 Flow Rate FiO2 04/22/21 14:29 98.2 64 18 127/61 (83) 96 Room Air 98.2 I&O Intake and Output 04/22/21 07:00 Intake Total 680 ml Balance 680 ml Intake Oral 680 ml # Voids 4 General: Alert, Oriented X3, Cooperative, No acute distress Abdomen: Soft, No tenderness Labs Laboratory Tests Test 04/20/21 20:41 04/21/21 06:51 04/21/21 08:25 04/21/21 11:10 Glucose (Fingerstick) 222 mg/dL (70-99) 184 mg/dL (70-99) 246 mg/dL (70-99) White Blood Count 5.3 x10^3/uL (4.0-11.0) Red Blood Count 4.44 x10^6/uL (3.50-5.40) Hemoglobin 13.0 g/dL (12.0-15.5) Hematocrit 39.0 % (36.0-47.0) Mean Corpuscular Volume 88 fL (79-100) Mean Corpuscular Hemoglobin 29 pg (25-35) Mean Corpuscular Hemoglobin Concent 33 g/dL (31-37) Red Cell Distribution Width 14.2 % (11.5-14.5) Platelet Count 166 x10^3/uL (140-400) Neutrophils (%) (Auto) 79 % (31-73) Lymphocytes (%) (Auto) 10 % (24-48) Monocytes (%) (Auto) 11 % (0-9) Eosinophils (%) (Auto) 0 % (0-3) Basophils (%) (Auto) 0 % (0-3) Neutrophils # (Auto) 4.2 x10^3/uL (1.8-7.7) Lymphocytes # (Auto) 0.5 x10^3/uL (1.0-4.8) Monocytes # (Auto) 0.6 x10^3/uL (0.0-1.1) Eosinophils # (Auto) 0.0 x10^3/uL (0.0-0.7) Basophils # (Auto) 0.0 x10^3/uL (0.0-0.2) Sodium Level 143 mmol/L (136-145) Potassium Level 3.3 mmol/L (3.5-5.1) Chloride Level 106 mmol/L (98-107) Carbon Dioxide Level 24 mmol/L (21-32) Anion Gap 13 (6-14) Blood Urea Nitrogen 7 mg/dL (7-20) Creatinine 0.5 mg/dL (0.6-1.0) Estimated GFR (Cockcroft-Gault) 134.0 BUN/Creatinine Ratio 14 (6-20) Glucose Level 184 mg/dL (70-99) Calcium Level 8.1 mg/dL (8.5-10.1) Total Bilirubin 0.4 mg/dL (0.2-1.0) Aspartate Amino Transf (AST/SGOT) 27 U/L (15-37) Alanine Aminotransferase (ALT/SGPT) 40 U/L (14-59) Alkaline Phosphatase 46 U/L (46-116) Total Protein 6.0 g/dL (6.4-8.2) Albumin 3.0 g/dL (3.4-5.0) Albumin/Globulin Ratio 1.0 (1.0-1.7) Lipase 105 U/L (73-393) Test 04/21/21 16:01 04/21/21 21:00 04/22/21 06:50 04/22/21 10:53 Glucose (Fingerstick) 214 mg/dL (70-99) 220 mg/dL (70-99) 193 mg/dL (70-99) 208 mg/dL (70-99) Test 04/22/21 16:10 Glucose (Fingerstick) 176 mg/dL (70-99) Laboratory Tests Test 04/21/21 21:00 04/22/21 06:50 04/22/21 10:53 04/22/21 16:10 Glucose (Fingerstick) 220 mg/dL (70-99) 193 mg/dL (70-99) 208 mg/dL (70-99) 176 mg/dL (70-99) Assessment/Plan ileus, favor gastroenteritis, improved OK to d/c home, f/u PRN Justicifation of Admission Dx: Justifications for Admission: Justification of Admission Dx: N/A PAUL,RAYMUNDO J MD Apr 22, 2021 17:10
== END 2021-04-22 15:00 | disposition home or self-care (01) | DRG 390 ==
LOC: 4 NORTH 12:42
PROVIDERS: ADMIT Internal Medicine; ATTEND Internal Medicine
DX: K56.609 Unspecified intestinal obstruction, unspecified as to partial versus complete obstruction (principal); K52.9 Noninfective gastroenteritis and colitis, unspecified; K56.7 Ileus, unspecified; E11.9 Type 2 diabetes mellitus without complications; E78.5 Hyperlipidemia, unspecified; G89.29 Other chronic pain; I10 Essential (primary) hypertension; Z83.3 Family history of diabetes mellitus; Z87.891 Personal history of nicotine dependence; Z90.5 Acquired absence of kidney; Z90.721 Acquired absence of ovaries, unilateral; M19.90 Unspecified osteoarthritis, unspecified site; Z88.0 Allergy status to penicillin
CPT/HCPCS: 36415; 74021; 80053; 82962; 83690; 85007; 85025; J1815; J2405; J3010; J7030; G0378